=== PATIENT | male | born 2000 | race Caucasian/White ===

== ENCOUNTER 2023-08-20 08:33 | Outpatient (OUT) | payer OTHER, SELFPAY ==
--- NOTE | 2023-08-20 08:47 | MR_ITS ---
The [address] [address] Patient Name: ELIZABETH RENDON MRN: [id number] date: 2000 Sex: M Assigned Patient Location: RAD Current Patient Location: RAD Accession/Order Number: [id number] Exam Date: 08/20/2023 09:15 Report Date: 08/20/2023 14:15 At the request of: ABISAI FRANCOIS Procedure: MR head/brain wo con EXAM: MR head/brain wo con HISTORY: New Daily Persistent headache G44.52, Neck Pain M54.2 COMPARISON: None. TECHNIQUE: Axial sagittal T1, axial T2, axial flair, axial GRE, axial DWI FINDINGS: There is no diffusion abnormality. The brain demonstrates normal morphology and signal. There is no mass, mass effect, nor hydrocephalus. The vascular flow voids are patent. The extra-axial structures appear normal. The internal auditory canals appear unremarkable. Small amount of fluid in the left mastoid tip. Mild ethmoid, frontal and maxillary sinus mucosal disease. The orbits, sella, and craniocervical junction appear normal. There are no areas of hemosiderin staining MR/MR head/brain wo con IMPRESSION: Unremarkable unenhanced MRI appearance of the brain. Mild sinus mucosal disease Electronically authenticated by: OPHELIA NEWBY Date: 08/20/2023 14:15
--- NOTE | 2023-08-20 09:03 | XR_ITS ---
The [place] [id number] Patient Name: ELIZABETH RENDON MRN: [id number] date: 2000 Sex: M Assigned Patient Location: RAD Current Patient Location: [facility] Accession/Order Number: [id number] Exam Date: 08/20/2023 08:57 Report Date: 08/20/2023 09:31 At the request of: ABISAI FRANCOIS Procedure: XR foreign body eye XR foreign body eye, 08/20/2023 8:57 AM EDT, [place]001 INDICATION: Foreign Body Eye Evaluate for the presence of metallic/radiopaque foreign body, for MRI clearance COMPARISON: None Technique: AP and lateral views of the orbits obtained. FINDINGS: There is no evidence of radiopaque foreign body in the orbits. XR/XR foreign body eye IMPRESSION: No evidence of radiopaque foreign body. Electronically authenticated by: ROQUE ANGELO Date: 08/20/2023 09:31
== END 2023-08-20 08:34 | disposition home or self-care (01) ==
LOC: RAD 08:36
PROVIDERS: PCP Nurse Practitioner Family; Visit Provider Nurse Practitioner Family
DX: G44.52 New daily persistent headache (NDPH) (principal); M54.2 Cervicalgia; V89.2XXD Person injured in unspecified motor-vehicle accident, traffic, subsequent encounter; R43.0 Anosmia; S06.0XAD Concussion with loss of consciousness status unknown, subsequent encounter
CPT/HCPCS: 70030; 70551